=== PATIENT | female | born 1935 | race Caucasian/White ===

== ENCOUNTER 2022-04-18 07:58 | Day surgery (SDC) | payer OTHER ==
[2022-04-18] MEDS ORDERED: ERTAPENEM NA 1 GM in NA CHLORIDE 0.9% 100 ML IVPB ONE (08:15)
[2022-04-18 08:53] VITALS: BP 139/51; TEMP 97.1; O2SAT 94; BMI 42.3
== END 2022-04-18 09:10 | disposition home or self-care (01) ==
LOC: DS 07:58
PROVIDERS: ATTEND Internal Medicine
DX: N39.0 Urinary tract infection, site not specified (principal)
CPT/HCPCS: 96365; J1335

== ENCOUNTER 2022-04-29 11:31 | Inpatient (IN) | payer OTHER ==
--- OUTSIDE RECORDS SUMMARY | 2022-04-29 11:44 | XMS REPORT | Continuity of Care Document ---
:1935 Author Organization [facility] t Address [address] [place] [address] Care Team Providers Name Role Phone Cristi Calderon Attending Clinician Unavailable Problems This patient has no known problems. Allergies, Adverse Reactions, Alerts This patient has no known allergies or adverse reactions. Medications This patient has no known medications. Procedures This patient has no known procedures. Encounters Start End Encounter Admission Attending Care Care Encounter Source Date/Time Date/Time Type Type Clinicians Facility Department ID 2022-02-[address] [facility] [id number] Common 10:54:02 Calderon [id number] [facility] 2022-02-10 2022-02-10 ambulatory [facility] [id number] Common 00:00:00 00:00:00 [facility] Results This patient has no known results.
[2022-04-29 14:58] VITALS: BMI 60.0
[2022-04-29] MEDS: HYDROMORPHONE HCL 1 MG/ML INJ IV PRN (15:03)
[2022-04-30] MEDS: HYDROMORPHONE HCL 1 MG/ML INJ IV PRN ×2 (03:11→20:19)
[2022-04-30] MEDS: LORazepam 2 MG/ML VIAL IV PRN ×2 (05:36→15:17)
[2022-04-30] MEDS ORDERED: HYDROMORPHONE HCL 1 MG/ML INJ IM PRN (22:29)
[2022-04-30] MEDS ORDERED: LORazepam 2 MG/ML VIAL IM PRN (22:29)
[2022-05-01] MEDS: HYDROMORPHONE HCL 1 MG/ML INJ IV PRN (04:36)
[2022-05-01] MEDS: LORazepam 2 MG/ML VIAL IV PRN (09:57)
[2022-05-01 11:48] LABS: Arterial Blood Carboxyhemoglob 1.5 % (0-1.5); Blood Gas Oxyhemoglobin 81.1 % (94-97); Blood O2 Saturation 83.6 % (92-98.5)
--- NOTE | 2022-05-01 12:40 | PN ---
The patient is gradually getting worse everyday. Her kidneys are failing. She is weak, lethargic at times, short of breath, lying in the bed, not able to ambulate any longer. 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 She will be dependent on BiPAP and also gradually with her hemoglobin dropping off and on, her creatinine increasing over time. Despite giving her IV fluids, she is getting worse in my opinion. He agrees. He wanted to come here and he did this morning, on my advise to come and talk to Le. Le does not want DNR status still. She is in quite denial, but they have agre ed to hospice care and at this point, she became lethargic again, this evening and I asked the nurses to put her back on BiPAP machine. I did not order removal of BiPAP before. Some hours ago, it was taken off by some other person's order to put her back on BiPAP as pCO2 is up to 67, pH was 7.17, and discussed with patient's nephew again about DNR status to the nurses and he does not want her DNR un til he talks with the family members. It looks like she has no immediate family members, but there a re lot of other family members giving their opinion at this point. In any case, her prognosis remain poor. I do not think she will survive more than a few days to a month and DNR and hospice is approp riate for this condition. Hopefully tomorrow we will get some conclusion after talking to her nephew . RVD/MODL Voice ID: [id number] Report ID: [id number]
--- NOTE | 2022-05-01 12:42 | P.PN ---
Subjective Date of Service: 04/30/22 Chief Complaint: COMATOSE. Subjective: Worsening HERMINIA IS COMATOSE WITH RESPIRATORY FAILURE. I HAD DISCUSSION WITH NEPHEW KOURTNEY DOMINGUEZ DAILY AND HE MADE HE DNR TODAY THAT IS THE BEST FOR HER. Review of Systems is unable to be obtained Physical Examination - Vital Signs Temperature: 97.4 F Blood Pressure: 82/43 Pulse: 60 Respirations: 18 Pulse Ox (%): 95 - Physical Exam General: Severe distress, Comatose, Obese HEENT: Atraumatic, PERRLA, EOMI Neck: Supple, JVD not distended Respiratory: Diminished (BIPAP DEPENDENT.) Cardiovascular: Regular rate/rhythm, Normal S1 S2, Edema Gastrointestinal: No tenderness Musculoskeletal: No tenderness Integumentary: No rashes Neurological: Other (TOTALLY UNRESPONSIVE TO PAINFUL STIMULUS. PUPILS NOT REACTIVE. ) Lymphatics: No axilla or inguinal lymphadenopathy - Studies Medications List Reviewed: Yes Assessment And Plan - Current Problems (Diagnosis) (1) Acute renal failure Current Visit: No Status: Acute (2) Respiratory failure Current Visit: No Status: Chronic Plan: TERMINAL WITH THIS CONDITION. I WILL HOPE THE POA WILL NOW DC BIPAP TO LET HER GO PEACEFULLY THERE IS NOT CURE AND NO REASON TO PROLONG HER AGONY.
[2022-05-02] MEDS: HYDROMORPHONE HCL 1 MG/ML INJ IV PRN (14:34)
[2022-05-03] MEDS: HYDROMORPHONE HCL 1 MG/ML INJ IV PRN ×2 (02:05→13:08)
[2022-05-03] MEDS: LORazepam 2 MG/ML VIAL IV PRN ×2 (02:08→13:08)
--- NOTE | 2022-05-03 13:02 | P.PN ---
Subjective Date of Service: 05/03/22 Chief Complaint: COMATOSE. Subjective: No new changes HERMINIA IS COMATOSE WITH RESPIRATORY FAILURE. I HAD DISCUSSION WITH NEPHEW KOURTNEY DOMINGUEZ DAILY AND HE MADE HE DNR TODAY THAT IS THE BEST FOR HER. SAME TERMINAL, COMATOSE SOME INVOLUNTARY MOVEMENT. Review of Systems is unable to be obtained Physical Examination - Vital Signs Temperature: 98.0 F Blood Pressure: 144/69 Pulse: 69 Respirations: 18 Pulse Ox (%): 99 - Physical Exam General: Moderate distress (ON BIPAP.), Comatose Respiratory: Diminished (RAPID) Cardiovascular: Normal S1 S2 - Studies Medications List Reviewed: Yes Assessment And Plan - Current Problems (Diagnosis) (1) Acute renal failure Current Visit: No Status: Acute (2) Respiratory failure Current Visit: No Status: Chronic Plan: TERMINAL WITH THIS CONDITION. I WILL HOPE THE POA WILL NOW DC BIPAP TO LET HER GO PEACEFULLY THERE IS NOT CURE AND NO REASON TO PROLONG HER AGONY. TERMINAL RESPIRATORY FAILURE WILL SOON ONCE BIPAP IS TAKEN OFF. KOURTNEY DOMINGUEZ IS TRYING TO DECIDE. THERE IS NO HOPE FOR RECOVERY.
--- NOTE | 2022-05-03 13:10 | PN ---
Subjective: Patient is terminal with respiratory failure, comatose in condition, unresponsive to any kind of painful stimulus, breathing heavy deep with BiPAP support only. Patient's nephew, I have ta lked to him yesterday, has decided not to remove the BiPAP so far. This note should be done in yester day's date actually. [employer] is not working from home, so I am doing this dictation on phone. Cond ition terminal. She should be a DNR and has made her DNR. At this point, the BiPAP should be remove d and we should let her go peacefully, but the patient's nephew is trying to decide this since yester day. JOSE MIGUEL/JACOBL Voice ID: [id number] Report ID: [id number]
[2022-05-04] MEDS: HYDROMORPHONE HCL 1 MG/ML INJ IV PRN ×3 (00:15→22:23)
[2022-05-04] MEDS: LORazepam 2 MG/ML VIAL IV PRN ×4 (00:15→23:24)
--- NOTE | 2022-05-04 08:49 | P.PN ---
Subjective Date of Service: 05/04/22 Chief Complaint: COMATOSE. Subjective: No C/O voiced, Worsening HERMINIA IS COMATOSE WITH RESPIRATORY FAILURE. I HAD DISCUSSION WITH NEPHEW KOURTNEY DOMINGUEZ DAILY AND HE MADE HE DNR TODAY THAT IS THE BEST FOR HER. SAME TERMINAL, COMATOSE SOME INVOLUNTARY MOVEMENT. A AT TIMES SHE RESPONDS WITH MOANING NOT MUCH OF AWAKENING. Physical Examination - Vital Signs Temperature: 98 F Blood Pressure: 102/70 Pulse: 70 Respirations: 19 Pulse Ox (%): 98 - Physical Exam General: Moderate distress, Severe distress, Unresponsive, Obese Respiratory: Diminished Cardiovascular: Regular rate/rhythm - Studies Medications List Reviewed: Yes Assessment And Plan - Current Problems (Diagnosis) (1) Acute renal failure Current Visit: No Status: Acute (2) Respiratory failure Current Visit: No Status: Chronic Plan: TERMINAL WITH THIS CONDITION. I WILL HOPE THE POA WILL NOW DC BIPAP TO LET HER GO PEACEFULLY THERE IS NOT CURE AND NO REASON TO PROLONG HER AGONY. TERMINAL RESPIRATORY FAILURE WILL SOON ONCE BIPAP IS TAKEN OFF. KOURTNEY DOMINGUEZ IS TRYING TO DECIDE. THERE IS NO HOPE FOR RECOVERY. BIPAP IS KEEPING HER ALIVE. SHE DROPPED OXYGEN TO VERY LOW LEVEL WITHOUT BIPAP A FEW DAYS AGO. I TALKED TO KOURTNEY AGAIN YESTERDAY. HE WILL DECIDE ABOUT WITHDRAWAL OF ALL CARE AND LET HER GO PEACEFULLY THERE IS NO CURE TO THIS TERMINAL CONDITION. HE NEEDS A DAY OR SO MORE.
[2022-05-05] MEDS: HYDROMORPHONE HCL 1 MG/ML INJ IV PRN (11:45)
--- NOTE | 2022-05-05 20:37 | PN ---
Subjective: Patient is a hospice patient with terminal respiratory failure. I had a talk with patie briana's nephew today about getting her off BiPAP as it is not going to help her in the long run and she is basically BiPAP. At the same time, the BiPAP in a such a high pressure around her nose , she is developing a huge ulcer beneath the BiPAP mask. So, nephew has agreed to remove BiPAP at th is point and keep her comfortable for however many days she would last. Condition remains the same. It is terminal from respiratory failure. Morbidly obese and will most likely start deteriorating wi thin a day or 2, with her carbon dioxide elevation in the blood. Patient continues to be DNR and yamile ng on hospice. RVD/MODL Voice ID: [id number] Report ID: [id number]
[2022-05-06] MEDS: HYDROMORPHONE HCL 1 MG/ML INJ IV PRN ×2 (03:56→13:55)
[2022-05-07] MEDS: LORazepam 2 MG/ML VIAL IV PRN (01:59)
[2022-05-07] MEDS: HYDROMORPHONE HCL 1 MG/ML INJ IV PRN ×2 (02:15→12:30)
[2022-05-07] MEDS ORDERED: LORazepam 2 MG/ML VIAL IV PRN (11:36)
--- NOTE | 2022-05-07 13:23 | P.PN ---
Subjective Date of Service: 05/06/22 Chief Complaint: COMATOSE. Subjective: No C/O voiced, Worsening THERE IS NO WAKEFULNESS. SHE HAS SOME RESPONSE TO PAINFUL STIMULUS AND AT TIMES SHE RESPONDS BY MOVING HEAD PER NURSE. I HAVE NEVER HAD ANY LEGIBLE RESPONSE WHEN I VISIT HER. Physical Examination - Vital Signs Temperature: 97.3 F Blood Pressure: 110/39 Pulse: 75 Respirations: 14 Pulse Ox (%): 97 - Physical Exam General: Unresponsive, Comatose, Obese Neck: Supple, Without JVD or thyroid abnormality Cardiovascular: Edema (SEVERE DIFFUSE EDEMA) - Studies Medications List Reviewed: Yes Assessment And Plan - Current Problems (Diagnosis) (1) Acute renal failure Current Visit: No Status: Acute (2) Respiratory failure Current Visit: No Status: Chronic Plan: TERMINAL FROM RESPIRATORY FAILURE SECONDARY TO HYPERCAPNEA RELATED TO OBESITY. WE REMOVED BIPAP ON SUNDAY WITH PERMISSION OF KOURTNEY. SHE MAY LAST A FEW DAYS BUT IS COMFORTABLE.
--- NOTE | 2022-05-07 13:27 | P.PN ---
Subjective Date of Service: 05/07/22 Chief Complaint: COMATOSE. Subjective: No C/O voiced, Worsening THERE IS NO WAKEFULNESS. SHE HAS SOME RESPONSE TO PAINFUL STIMULUS AND AT TIMES SHE RESPONDS BY MOVING HEAD PER NURSE. I HAVE NEVER HAD ANY LEGIBLE RESPONSE WHEN I VISIT HER. THERE ARE FOUR COUSINS FROM [place] VISITING HER. SHE IS NOT AWAKE OR RESPONSIVE. Review of Systems is unable to be obtained Physical Examination - Vital Signs Temperature: 97.3 F Blood Pressure: 110/39 Pulse: 75 Respirations: 14 Pulse Ox (%): 97 - Physical Exam General: Moderate distress, Unresponsive (THERE WAS SOME RESTLESSNESS WITH PRESSURE ON THE STERNUM.), Obese HEENT: Atraumatic, PERRLA, EOMI Neck: Supple, Without JVD or thyroid abnormality Respiratory: Diminished, Other (THERE ARE PAUSES IN BREATHING NOW.) Cardiovascular: Irregular heart rate/rhythm Gastrointestinal: Normal bowel sounds, No tenderness Musculoskeletal: No tenderness Integumentary: No rashes Lymphatics: No axilla or inguinal lymphadenopathy - Studies Medications List Reviewed: Yes Assessment And Plan - Current Problems (Diagnosis) (1) Acute renal failure Current Visit: No Status: Acute (2) Respiratory failure Current Visit: No Status: Chronic Plan: TERMINAL FROM RESPIRATORY FAILURE SECONDARY TO HYPERCAPNEA RELATED TO OBESITY. WE REMOVED BIPAP ON SUNDAY WITH PERMISSION OF KOURTNEY. SHE MAY LAST A FEW DAYS BUT IS COMFORTABLE. TALKED TO KOURTNEY AGAIN TODAY. I ASKED IF WE CAN REMOVE OXYGEN TO HELP NOT PROLONG HER AGONY AND HE AGREED. I ASKED IF WE CAN MAKE DILAUDID OR ATIVAN SCHEDULED AND HE WANTS TO WAIT ONE MORE DAY FOR IT. HE UNDERSTANDS THAT SHE IS GOING TO PASS BUT AGAIN IT IS STRESSFUL FOR HIM.
[2022-05-08] MEDS: HYDROMORPHONE HCL 1 MG/ML INJ IV PRN ×2 (00:30→09:18)
[2022-05-08] MEDS: HYDROMORPHONE HCL 1 MG/ML INJ IV SCH ×5 (13:23→23:58)
[2022-05-08 23:07] VITALS: BP 89/42; TEMP 97.5
[2022-05-09] MEDS: HYDROMORPHONE HCL 1 MG/ML INJ IV SCH (03:00)
[2022-05-09 04:54] VITALS: O2SAT 70
--- NOTE | 2022-05-09 13:19 | PN ---
Subjective: Le is an unresponsive patient with end-stage respiratory failure, whom we are alexandreai ng comfortable on hospice care at this point. I have been talking to the patient's power of criminal attorney , on a daily basis. He has agreed to put her on comfort medication, morphine every 3 hours routinely , scheduled to keep her from her miserable condition from the suffering. The patient is unresponsive and has some movement on the painful stimulus, which is only the response I get, when I see her. Shirlene sykes is otherwise, not able to open eyes, communicate in any ways. She is n.p.o. at this point and as a matter of time, she will be expiring under hospice care. JOSE MIGUEL/VINNY Voice ID: [id number] Report ID: [id number]
--- NOTE | 2022-05-10 09:27 | DS ---
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 2.Renal failure. 3.Congestive heart failure. 4.Diastolic dysfunction. Hospital Course: Patient who was an elderly lady who had worsening respiratory failure with hypercap sotero. The patient's power of trademark attorney decided to place her on hospice inpatient, because she was fail ing to recover, not able to survive on her own without a BiPAP machine. Even with BiPAP, slowly she became unconscious, unresponsive, only able to move with painful stimulus involuntarily. She over la st 6 to 7 days, was well, gradually getting worse and with the assistance of patient's power of attor Manny key, we were able to discontinue BiPAP as the BiPAP machine was causing a huge ulcer on her nose with pressure. We understood that is causing more pain, which is not benefitting her anymor e, so we decided to remove BiPAP according to my recommendations. BiPAP was taken off slowly. We al so put her on a regular dose of medications to her comfort and this morning she as expect ed. RVD/MODL Voice ID: [id number] Report ID: [id number]
== END 2022-05-09 05:05 | disposition expired | DRG 951 ==
LOC: 4TH 11:31
PROVIDERS: ADMIT Internal Medicine; ATTEND Internal Medicine
DX: Z51.5 Encounter for palliative care (principal)
CPT/HCPCS: 82805; 82947; 94660; 94760; J1170